=== PATIENT | male | born 1985 | race African-American/Black ===

== ENCOUNTER 2016-10-15 23:03 | Emergency (ER) | payer MEDICAID ==
[2014-01-18 22:05] VITALS: BMI 20.5
[~2016-10-15 23:03] MED LIST: ANUSOL-HC25 MG RC; DICLOFENAC; FLAGYL500 MG PO; HYDROCODONE-APA1 TAB PO; LEVAQUIN500 MG PO; LIBRAX CAPSULE1 CAP PO; NORCO 5/325 TAB1 TA1 PO; PHENERGAN25 M1 PO; ZOFRAN4 MG PO
[2016-10-15 23:54] LABS: BASOPHILS 0.2 % (0.0-2.0); EOSINOPHILS 0.9 % (0-7); HEMATOCRIT 44.6 % (42.0-54.0); HEMOGLOBIN 14.1 g/dL (13.5-17.5); IMMATURE GRANULOCYTES 0.3 % (0-5); LYMPHOCYTES 15.7 % (15-50); MCH 29.6 pg (26.0-34.0); MCHC 31.6 g/dL (31.0-37.0); MCV 93.5 fL (80.0-100.0); MEAN PLATELET VOLUME 10.1 fL (7.4-10.4); MONOCYTES 9.3 % (2-11); NEUTROPHILS 73.6 % (40-80); RBC 4.77 10x6/uL (4.20-6.10); RDW 12.8 % (11.5-14.5); WBC 11.6 10x3/uL (4.8-10.8)
[2016-10-15 23:55] LABS: PLATELET COUNT 244 10x3/uL (130-400)
[2016-10-15 23:58] LABS: ALBUMIN 3.7 g/dL (3.4-5.0); ALKALINE PHOSPHATASE 93 U/L (46-116); ALT (SGPT) 122 U/L (10-68); AMYLASE - SERUM 80 U/L (25-115); BILIRUBIN - TOTAL 0.58 mg/dL (0.2-1.3); CALC OSMOLALITY 274 mosm/kg (275-300); CALCIUM 8.9 mg/dL (8.5-10.1); CARBON DIOXIDE 30.2 mmol/L (21.0-32.0); CHLORIDE - SERUM 101 mmol/L (98-107); CREATININE - SERUM 0.8 mg/dL (0.6-1.3); GLUCOSE 106 mg/dL (74-106); LIPASE 69 U/L (73-393); POTASSIUM - SERUM 3.9 mmol/L (3.5-5.1); SODIUM 138 mmol/L (136-145); UREA NITROGEN 10 mg/dL (7-18); eGFR NON AFRICAN AMERICAN > 90 mL/min (90-120)
== END 2016-10-16 01:23 | disposition home or self-care (01) ==
LOC: D.ER 23:03
PROVIDERS: Physician Assistant Medical
DX: A08.4 Viral intestinal infection, unspecified (principal); F41.9 Anxiety disorder, unspecified; G40.909 Epilepsy, unspecified, not intractable, without status epilepticus; F17.200 Nicotine dependence, unspecified, uncomplicated

== ENCOUNTER 2016-10-20 21:55 | Emergency (ER) | payer OTHER ==
[2014-01-18 22:05] VITALS: BMI 20.5
[2016-10-26 18:07] LABS: AEROBE ID Final report (())
== END 2016-10-21 00:04 | disposition home or self-care (01) ==
LOC: D.ER 21:55
PROVIDERS: Family Medicine
DX: J02.9 Acute pharyngitis, unspecified (principal); F41.9 Anxiety disorder, unspecified; G40.909 Epilepsy, unspecified, not intractable, without status epilepticus

== ENCOUNTER 2017-06-10 08:54 | Emergency (ER) | payer OTHER ==
[2014-01-18 22:05] VITALS: BMI 20.5
[2017-06-10 09:29] LABS: BASOPHILS 0.4 % (0-2); EOSINOPHILS 1.3 % (0-7); HEMATOCRIT 44.2 % (42.0-54.0); HEMOGLOBIN 14.2 g/dL (13.5-17.5); IMMATURE GRANULOCYTES 0.2 % (0-5); LYMPHOCYTES 27.9 % (15-50); MCH 29.9 pg (26.0-34.0); MCHC 32.1 g/dL (31.0-37.0); MCV 93.1 fL (80.0-100.0); MEAN PLATELET VOLUME 9.6 fL (7.4-10.4); MONOCYTES 8.5 % (2-11); NEUTROPHILS 61.7 % (40-80); PLATELET COUNT 261 10x3/uL (130-400); RBC 4.75 10x6/uL (4.20-6.10); RDW 12.6 % (11.5-14.5); WBC 5.3 10x3/uL (4.8-10.8)
[2017-06-10 09:45] LABS: ALBUMIN 3.3 g/dL (3.4-5.0); ALKALINE PHOSPHATASE 78 U/L (46-116); ALT (SGPT) 122 U/L (10-68); BILIRUBIN - TOTAL 0.46 mg/dL (0.2-1.3); CALC OSMOLALITY 264 mosm/kg (275-300); CARBON DIOXIDE 29.9 mmol/L (21.0-32.0); CHLORIDE - SERUM 98 mmol/L (98-107); CREATININE - SERUM 0.9 mg/dL (0.6-1.3); GLUCOSE 114 mg/dL (74-106); POTASSIUM - SERUM 4.8 mmol/L (3.5-5.1); PROTEIN - SERUM 7.9 g/dL (6.4-8.2); SODIUM 132 mmol/L (136-145); UREA NITROGEN 10 mg/dL (7-18); eGFR NON AFRICAN AMERICAN > 90 mL/min (90-120)
== END 2017-06-10 10:15 | disposition home or self-care (01) ==
LOC: D.ER 08:54
PROVIDERS: Emergency Medicine
DX: A08.4 Viral intestinal infection, unspecified (principal); F17.200 Nicotine dependence, unspecified, uncomplicated

== ENCOUNTER 2018-06-12 00:54 | Emergency (ER) | payer SELFPAY ==
[2018-06-12 01:11] VITALS: Ht 172.7 cm
[2018-06-12] MEDS ORDERED: ZOFRAN ODT4 MG/UDTAB PO (01:52)
[2018-06-12] MEDS ORDERED: KEFLEX500 MG PO (01:53)
[2018-06-12 02:27] VITALS: BP 118/74
== END 2018-06-12 02:29 | disposition home or self-care (01) ==
LOC: D.ER 00:54
DX: R11.10 Vomiting, unspecified (principal); R10.9 Unspecified abdominal pain; G40.909 Epilepsy, unspecified, not intractable, without status epilepticus; I10 Essential (primary) hypertension; F17.200 Nicotine dependence, unspecified, uncomplicated

== ENCOUNTER 2019-03-24 10:32 | Emergency (ER) | payer SELFPAY ==
[~2019-03-24] VITALS: Ht 172.7 cm; Wt 75.0 kg
[~2019-03-24 10:32] MED LIST changes: +KEFLEX500 MG PO; +ZOFRAN ODT4 MG/UDTAB PO
[2019-03-24 10:36] VITALS: Ht 172.7 cm; Wt 75.0 kg
[2019-03-24] MEDS ORDERED: TORADOL10 MG PO (11:59)
[2019-03-24 12:34] VITALS: BP 111/71
== END 2019-03-24 12:34 | disposition home or self-care (01) ==
LOC: D.ER 10:32
DX: S69.92XA Unspecified injury of left wrist, hand and finger(s), initial encounter (principal); V13.4XXA Pedal cycle driver injured in collision with car, pick-up truck or van in traffic accident, initial encounter; Y92.410 Unspecified street and highway as the place of occurrence of the external cause; S33.5XXA Sprain of ligaments of lumbar spine, initial encounter